=== PATIENT | female | born 1960 | race Caucasian/White ===

== ENCOUNTER 2019-10-19 14:53 | Emergency (ER) | payer OTHER ==
[2019-10-19 15:05] VITALS: BP 134/76; PULSE 70; TEMP 98.1; BMI 23.4
--- NOTE | 2019-10-19 15:58 | PDOC ---
History of Present Illness - General Chief Complaint: Pain, Acute Stated Complaint: I NEED A CT SCAN BECAUSE I HAVE A RENAL STONE Time Seen by Provider: 10/19/19 15:39 History Source: Patient Exam Limitations: No Limitations - History of Present Illness Initial Comments: 10/19/19 15:56 59YOF with h/o renal stones who p/w persistent right suprapubic pain since obstructing renal stone was diagnosed. States she had imaging of the stone and ultrasound, feels like the pain has been persisting and she has not noted passing the stone yet. She became concerned and came in for a CT to have the stone size assessed to determine if it needs any other kind of intervention. She has been drinking plenty of fluids and notes there is a Rx for Flomax at her pharmacy as written by her outpatient doctor. She denies f/c/n/v/d/c, vaginal bleeding/discharge, or other symptoms. Past History - Medical History Allergies/Adverse Reactions: Allergies Allergy/AdvReac Type Severity Reaction Status Date / Time cephalexin Allergy Intermediate Hives Verified 07/25/15 10:12 Penicillins Allergy Intermediate Hives Verified 07/25/15 10:12 Home Medications: Ambulatory Orders Multivitamins [Tab-A-Vit -] 1 tab PO DAILY 07/25/15 COPD: No GI Disorders: Yes (ACID REFLUX) Kidney Stones: Yes (SURGICALLY REMOVED) - Immunization History Immunization Up to Date: Yes - Psycho-Social/Smoking History Smoking History: Never smoked Have you smoked in the past 12 months: No Number of Cigarettes Smoked Daily: 16 Information on smoking cessation initiated: No - Substance Abuse Hx (Audit-C & DAST Scrn) How often the patient has a drink containing alcohol: Never Score: In Men: 4 or > Positive; In Women: 3 or > Positive: 0 Screen Result (Pos requires Nsg. Audit-10AR): Negative In the last yr the pt used illegal drug/Rx for NonMed reason: No Score: Yes response is considered Positive: 0 Screen Result (Positive result requires Nsg. DAST-10): Negative Review of Systems - Review of Systems Able to Perform ROS?: Yes Comments:: GEN: no fever, chills, malaise, or generalized weakness HEENT: no ear pain, congestion, sore throat, vision change, or eye pain CV: no chest pain, palpitations, lightheadedness, syncope, or edema RESP: no SOB, wheezing, or cough GI: mild suprapubic abdominal pain, no nausea, vomiting, diarrhea, constipation, or rectal bleed : no dysuria, hematuria, or discharge, no CVA pain/back pain MSK: no muscle weakness or pain, no joint swelling or pain NEURO: no headache, vertigo, numbness, tingling, or focal weakness PSYCH: no SI, HI, or behavior change SKIN: no jaundice, rash, lesions, or unexplained bruises ROS otherwise negative except as noted in HPI *Physical Exam - Vital Signs Last Vital Signs Temp Pulse Resp BP Pulse Ox 98.1 F 70 18 134/76 100 10/19/19 14:56 10/19/19 14:56 10/19/19 14:56 10/19/19 14:56 10/19/19 14:56 - Physical Exam 10/28/19 23:58 GENERAL: well-appearing, A/Ox4, no distress, answers questions appropriately, very pleasant HEENT: PERRLA, EOMI, moist mucous membranes NECK/BACK: no midline ttp, no spinal step-off or deformity, no hematoma, full ROM, neck supple CARDIOVASCULAR: regular rate/rhythm, no MGR, strong peripheral pulses, capillary refill <2 seconds, extremities wwp, no edema LUNGS/RESPIRATORY: no respiratory distress, CTAB GI/ABDOMEN: symmetric [id number], normoactive BS, soft, minimal suprapubic ttp, no midline pulsatile masses : no CVA tenderness MSK/EXTREMITIES: no muscle atrophy, no acute deformity SKIN: warm and dry, no pallor, no jaundice, no rash, no pathologic-appearing bruising, no skin breakdown, no cuts, no lesions NEUROLOGICAL: GCS 15, CN II-XII grossly intact, 5/5 strength proximally and distally, no facial droop ED Treatment Course - ADDITIONAL ORDERS Additional order review: Laboratory Results 10/19/19 15:30 Urine Color Yellow Urine Appearance Clear Urine pH 7.0 Urine Protein Negative Urine Glucose (UA) Negative Urine Ketones Negative Urine Blood Negative Urine Nitrite Negative Urine Bilirubin Negative Urine Urobilinogen 0.2 Ur Leukocyte Esterase Negative - RADIOLOGY Radiology Studies Ordered: Category Date Time Status SPIRAL- RENAL-STONE CT [CT] Stat CT Scan 10/19/19 15:16 Taken Medical Decision Making - Medical Decision Making 10/19/19 16:01 59YOF p/w right suprapubic pain with known right obstructing renal stone as imaged on 10/15/19 with mild hydronephrosis as seen on 10/17/2019 USS. Initial Vital Signs Temp Pulse Resp BP Pulse Ox 98.1 F 70 18 134/76 100 10/19/19 14:56 10/19/19 14:56 10/19/19 14:56 10/19/19 14:56 10/19/19 14:56 DDX IBNLT: renal colic, less likely UTI/pyelonephritis with possible obstructive uropathy, unlikely thrombotic or aneurysmal or dissection related etiology as patient has no risk factors and had known ureteral calculus. Unlikely appendicitis as patient's VS are wnl and she has normal appetite, unlikely hernia, ovarian torsion, etc. Possible component of constipation. Provider Orders Category Date Time Status SPIRAL- RENAL-STONE CT [CT] Stat CT Scan 10/19/19 15:16 Taken UA ([facility] ONLY) Stat Lab 10/19/19 15:16 Ordered URINE CULTURE Stat Micro 10/19/19 15:16 Ordered Lab Results Urine Color Yellow 10/19/19 15:30 Urine Appearance Clear 10/19/19 15:30 Urine pH 7.0 (4.5-8) 10/19/19 15:30 Urine Protein Negative (NEGATIVE) 10/19/19 15:30 Urine Glucose (UA) Negative (NEGATIVE) 10/19/19 15:30 Urine Ketones Negative (NEGATIVE) 10/19/19 15:30 Urine Blood Negative (NEGATIVE) 10/19/19 15:30 Urine Nitrite Negative (NEGATIVE) 10/19/19 15:30 Urine Bilirubin Negative (NEGATIVE) 10/19/19 15:30 Urine Urobilinogen 0.2 (0.2-1.0) 10/19/19 15:30 Ur Leukocyte Esterase Negative (NEGATIVE) 10/19/19 15:30 CT/SPIRAL- RENAL-STONE CT Renal stone CT without contrast Clinical information: right flank pain Multiplanar imaging was performed. No intravenous or enteric contrast was administered. No prior CT exam is available at this facility for direct comparison. The current exam is cor related with sonography performed on 10/17/2019. A 2 mm nonobstructing left renal lower pole calyceal calculus is noted. No other urinary tract calculus is seen. Specifically there is no discrete right renal or ureteral calculus. As noted on recently performed sonography there is minimal to mild prominence of the renal collecting systems bilaterally which appears nonobstructive in nature. No ureteral dilatation is visualized. There is no definite perirenal or periureteral soft tissue stranding. No gross urinary tract mass lesion is identified within the limitatio ns of noncontrast CT. A small amount of fluid is seen within the urinary bladder which demonstrates no obvious intrinsic or extrinsic CT pathology along for limited distention. Several small bilateral lower pelvic calcified phleboliths are noted. No evidence of free intraperitoneal fluid or bowel obstruction. There is no CT evidence of acute appendicitis or diverticulitis. No gross noncontrast small bowel abnormality is identified. The liver, spleen, pancreas, gallbladder, and adrenal glands demonstrate no discrete noncontrast pathology. There is no aortic aneurysm. No obvious lymphadenopathy is noted. The pelvic soft tissue structures demonstrate no gross noncontrast abnormality. There is no flank hernia. The visualized osseous structures demonstrate no obvious acute pathology. Impression: A 2 mm nonobstructing left renal calculus is noted. Minimal to mild prominence of the renal collecting systems is noted bilaterally which appears nonobstructive in nature. Similar minimal to mild prominence was also noted on recently performed sonography of 10/17/2019. No definite CT findings of acute pathology are identified. There appears to be a urethral stone which is roughly 5mm max diameter. There is no obvious significant hydronephrosis on the CT and the patient is able to urinate normally, so this is not causing a complete urethral obstruction. She is appropriate for discharge home with close urology and PCP follow-up, is comfortable with this plan. Return precautions discussed. Discharge - Discharge Information Problems reviewed: Yes Clinical Impression/Diagnosis: Urethral calculus Condition: Stable Disposition: HOME - Admission No - Follow up/Referral Referrals: Archie Sanchez MD [Staff Physician] - Poppy Caicedo MD [Staff Physician] - - Patient Discharge Instructions Additional Instructions: You were seen in the ER for persistent low abdominal pain while trying to pass a kidney stone. It appears that the stone is in the urethra (has already passed the bladder and is on it's way out of the urethra). The stone is roughly 4.8 x 3.0 x 5.0 mm and it is worth trying to pass it with the Flomax and plenty of fluids. We discussed the possibility of checking your kidney function at this time, and decided it is not absolutely necessary at this time since you are urinating normally and there was no apparent obstruction of the bladder and no apparent hydronephrosis on the CT today. 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 Follow up with a urologist and your PCP. We are giving you referral information for a urologist in case you need one. Come back to the ER for any new or worsening symptoms, especially worsening flank pain, worsening abdominal pain, inability to urinate, fever, chills, passing out, palpitations, chest pain, shortness of breath, or other concerns. - Post Discharge Activity
== END 2019-10-19 17:02 | disposition home or self-care (01) ==
LOC: FER 14:53
DX: N20.1 Calculus of ureter (principal)
CPT/HCPCS: 74176-TC; 81003; 87086; 99285-25